=== PATIENT | female | born 2000 | race Caucasian/White ===

== ENCOUNTER 2020-02-16 14:58 | Emergency (ER) | payer OTHER, SELFPAY ==
[2020-02-16 15:06] VITALS: BP 120/74; PULSE 71; RESP 16; TEMP 36.4; O2SAT 100
--- NOTE | 2020-02-16 15:19 | ED.URI ---
HPI - URI/Sore Throat General Stated Complaint: painful breathing and cough Time Seen by Provider: 02/16/20 15:19 Source: patient and RN notes reviewed History of Present Illness HPI Narrative: Patient is a 19-year-old female who presents the urgent care with complaints of persistent productive dark yellow cough with painful deep breathing. Patient states she feels the pain on the left side of her chest and back with deep breathing, coughing fits, and specific movements. Patient states her symptoms started on January 18 and she was at COVID negative and strep negative at that time. Patient states her symptoms just seem to be worsening and she has been using Robitussin, TheraFlu and Mucinex. Patient denies of fever, nausea, vomiting, shortness of breath. Denies of any other acute complaints. No acute distress noted. Patient aware of the plan of care. Some parts of this dictation were generated by voice recognition software and may contain typographical and/or grammatical inaccuracies. Related Data Allergies Allergy/AdvReac Type Severity Reaction Status Date / Time clindamycin Allergy Hives Verified 02/16/20 15:37 Review of Systems Review of Systems: Narrative: CONSTITUTIONAL: Denies fever, chills, or sweats. EYES: Denies visual changes, redness, or discharge. ENT: Reports of sore throat CARDIOVASCULAR: Denies chest pain, palpitations, or edema. RESPIRATORY: Reports a cough and pain with deep breathing GASTROINTESTINAL: Denies abdominal pain, nausea, vomiting, or diarrhea. GENITOURINARY: Denies dysuria or hematuria. SKIN: Denies rash or itching. MUSCULOSKELETAL: Denies back pain, joint pain, or myalgia. NEUROLOGIC: Denies headache, numbness, or weakness. All other systems reviewed are negative, except as documented in HPI. PMFSH Comments At the time of my signature, I reviewed and agree with the nursing past medical, surgical, social, and family history. There is no relevant family history pertinent to the patient complaint. Exam Narrative: Exam Narrative: GENERAL: This is a well-nourished, well-developed patient, in no apparent distress. HEAD: normocephalic, atraumatic. EYES: PERRL. Sclera clear/white. Vision is grossly intact. EARS: External ears normal, auditory canals clear and without drainage, TMs normal without perforation. Hearing grossly intact. NOSE: External nose normal with no obvious nasal discharge, nares without redness, no rhinorrhea. THROAT: Mucous membranes moist, posterior pharynx clear. Mild postnasal drainage NECK: Neck supple, non-tender without lymphadenopathy, masses or thyromegaly. CARDIOVASCULAR: Regular rate and rhythm without murmurs, gallops, or rubs. RESPIRATORY: Clear to auscultation. Breath sounds equal bilaterally. No wheezes, rales, or rhonchi. Nonreproducible left rib pain SKIN: warm, intact with no suspicious lesions or rash, good texture and turgor. NEURO: awake, alert, and oriented to person, place and time. There were no obvious focal neurologic abnormalities. EXTREMITIES: No clubbing, cyanosis, or edema. Course Vital Signs Vital signs: Vital Signs Temperature 97.6 F 02/16/20 15:55 Pulse Rate 71 02/16/20 15:55 Respiratory Rate 16 02/16/20 15:55 Blood Pressure 120/74 02/16/20 15:55 Pulse Oximetry 100 02/16/20 15:55 Temperature 97.6 F 02/16/20 15:55 Pulse Rate 71 02/16/20 15:55 Respiratory Rate 16 02/16/20 15:55 Blood Pressure 120/74 02/16/20 15:55 Pulse Oximetry 100 02/16/20 15:55 reviewed MDM - URI/Sore Throat MDM Narrative Medical decision making narrative: Advised the patient to use steroid regimen as prescribed. Use Tessalon Perles as needed at bedtime for cough. May continue to use Robitussin throughout the day. If cough is productive, try not to suppress the cough throughout the day. Increase water intake and make sure to eat and drink with the medication. Do not bind the chest. Make sure to practice deep breathing. Take Claritin daily
== END 2020-02-16 15:40 | disposition home or self-care (01) ==
PROVIDERS: Emergency Provider Nurse Practitioner Family
DX: J40 Bronchitis, not specified as acute or chronic (principal)
CPT/HCPCS: 99213; G0463

== ENCOUNTER 2020-12-05 16:22 | Emergency (ER) | payer OTHER, SELFPAY ==
[2020-12-05 16:30] VITALS: BP 128/73; PULSE 84; RESP 18; TEMP 36.4; O2SAT 100
--- NOTE | 2020-12-05 16:36 | ED.URI ---
HPI - URI/Sore Throat General Chief Complaint: Upper Respiratory Infection Stated Complaint: sore throat Time Seen by Provider: 12/05/20 16:36 Source: patient and RN notes reviewed Mode of arrival: ambulatory Limitations: no limitations History of Present Illness HPI Narrative: 20-year-old female presents concern for sore throat. Reports intermittent sore throat for many weeks, reports she has been treated for possible strep after a negative strep test. Reports no improvement with the antibiotics. She reports sore throat is worse in the morning than it is in the evening. Reports she has been taking Tylenol. She reports rhinorrhea, postnasal drip. She denies cough, shortness of breath, fever, body aches, chills, sweats. MD elicited complaint: sore throat Related Data Allergies Allergy/AdvReac Type Severity Reaction Status Date / Time clindamycin Allergy Hives Verified 02/16/20 15:37 Review of Systems Review of Systems: Narrative: CONSTITUTIONAL: Denies malaise, chills, sweats, or fever. EYES: Denies visual changes, redness, or discharge. ENT: Reports rhinorrhea, sore throat, postnasal drip. Denies congestion, sinus pain, otalgia CARDIOVASCULAR: Denies chest pain, palpitations, or edema. RESPIRATORY: Denies cough or dyspnea. GASTROINTESTINAL: Denies abdominal pain, nausea, vomiting, diarrhea SKIN: Denies rash or itching. MUSCULOSKELETAL: Denies myalgia. NEUROLOGIC: Denies headache. All systems reviewed & are unremarkable except as noted in HPI and below PMFSH Comments At time of signature, agree with nursing past medical, surgical, social and family history. There is no relevant family history pertinent to the presenting complaint Exam Narrative: Exam Narrative: GENERAL: Well-appearing, well-nourished, and in no acute distress. HEAD: Normocephalic EYES: PERRLA, conjunctivae clear ENT: Nares clear, turbinates edematous and erythematous, clear discharge. Mucous membranes moist. TM pearly mabry with dull light reflex bilaterally; no tragal tenderness. Oropharynx erythematous without lesions. Tonsils not enlarged and without exudate, no drooling, no hoarseness, no trismus, uvula midline. NECK: Supple. No lymphadenopathy CHEST: Clear to auscultation, breath sounds equal. No wheezing, rhonchi, rales, or stridor. No respiratory distress, speaks in full sentences. HEART: Regular rate and rhythm. No murmur heard. SKIN: Warm, dry, no rash. NEURO: Alert and oriented x3. PSYCH: Normal mood and affect Course Course Emergency Course: Patient is aware of diagnosis, understands and agrees to treatment plan. Anticipatory guidance given. Patient agrees to follow-up as directed and is aware of reasons to seek care at the emergency department. Portions of this record may have been created with voice recognition software Vital Signs Vital signs: Vital Signs Temperature 97.6 F 12/05/20 16:30 Pulse Rate 84 12/05/20 16:30 Respiratory Rate 18 12/05/20 16:30 Blood Pressure 128/73 12/05/20 16:30 Pulse Oximetry 100 12/05/20 16:30 Temperature 97.6 F 12/05/20 16:30 Pulse Rate 84 12/05/20 16:30 Respiratory Rate 18 12/05/20 16:30 Blood Pressure 128/73 12/05/20 16:30 Pulse Oximetry 100 12/05/20 16:30 Reviewed. MDM - URI/Sore Throat MDM Narrative Medical decision making narrative: Differential diagnosis considered: Martinez virus, strep pharyngitis, allergic rhinitis, upper respiratory tract infection, sinusitis, rhinosinusitis, nasopharyngitis. viral pharyngitis, otitis media, otitis externa, pneumonia, bronchitis, viral cough syndrome, viral syndrome, and influenza. Exam findings show no acute concerns or changes; patient is non-toxic appearing and is in no distress. Patient is appropriate for outpatient treatment and follow-up. Lab Data Attestation: I reviewed the patient's lab results. Critical Care Time Critical Care Time Critical Care Time: No Discharge Plan Discharge Clinical Impression: Allergic rhi
== END 2020-12-05 16:47 | disposition home or self-care (01) ==
PROVIDERS: Emergency Provider Nurse Practitioner
DX: J30.89 Other allergic rhinitis (principal)
CPT/HCPCS: 87081; 87880; 99213; G0463

== ENCOUNTER 2021-03-22 16:16 | Emergency (ER) | payer OTHER, SELFPAY ==
--- NOTE | 2021-03-22 16:20 | ED.FEMALEGU ---
HPI - Female Genitourinary General Chief complaint: Urogenital-Female Stated complaint: STD check Time Seen by Provider: 03/22/21 16:20 Source: patient and RN notes reviewed History of Present Illness HPI Narrative: Patient is a 21-year-old female who presents the urgent care with complaints of possible STD. Patient states that she has been with 1 partner and he called her approximately 2 hours ago today and told her that he was positive for an STD. Patient states that he did not tell her which STD and immediately blocked her so she was unable to call him back or text him. Patient states that he has a new girlfriend and she is unsure if he had the STD when they were together or not. Patient denies of any vaginal discharge, pain with urination, hematuria, dysuria. Patient is not symptomatic for an STD. No other acute complaints. No acute distress noted. Patient aware of the plan of care. Some parts of this dictation were generated by voice recognition software and may contain typographical and/or grammatical inaccuracies. Related Data Home Medications Medication Instructions Recorded Confirmed desog-e.estradiol/e.estradiol 1 tablet PO DAILY 03/22/21 03/22/21 [Kizzy (28)] sumatriptan succinate 100 mg PO DAILY 03/22/21 03/22/21 Allergies Allergy/AdvReac Type Severity Reaction Status Date / Time clindamycin Allergy Hives Verified 03/22/21 16:54 Review of Systems Review of Systems: CONSTITUTIONAL: Denies fever, chills, or sweats. EYES: Denies visual changes, redness, or discharge. ENT: Denies rhinorrhea, congestion, sore throat, or otalgia. CARDIOVASCULAR: Denies chest pain, palpitations, or edema. RESPIRATORY: Denies cough or dyspnea. GASTROINTESTINAL: Denies abdominal pain, nausea, vomiting, or diarrhea. GENITOURINARY: Denies dysuria or hematuria. Reports a possible STD exposure SKIN: Denies rash or itching. MUSCULOSKELETAL: Denies back pain, joint pain, or myalgia. NEUROLOGIC: Denies headache, numbness, or weakness. All other systems reviewed are negative, except as documented in HPI. PMFSH Comments At the time of my signature, I reviewed and agree with the nursing past medical, surgical, social, and family history. There is no relevant family history pertinent to the patient complaint. Exam Narrative: GENERAL: This is a well-nourished, well-developed patient, in no apparent distress. HEAD: normocephalic, atraumatic. EYES: PERRL. Sclera clear/white. Vision is grossly intact. EARS: External ears normal NOSE: External nose normal with no obvious nasal discharge, nares without redness, no rhinorrhea. THROAT: Mucous membranes moist NECK: Neck supple CARDIOVASCULAR: Regular rate and rhythm without murmurs, gallops, or rubs. RESPIRATORY: Clear to auscultation. Breath sounds equal bilaterally. No wheezes, rales, or rhonchi. SKIN: warm, intact with no suspicious lesions or rash, good texture and turgor. NEURO: awake, alert, and oriented to person, place and time. There were no obvious focal neurologic abnormalities. EXTREMITIES: No clubbing, cyanosis, or edema. Course Vital Signs Vital signs: Vital Signs Temperature 98.3 F 03/22/21 16:27 Pulse Rate 79 03/22/21 16:27 Respiratory Rate 16 03/22/21 16:27 Blood Pressure 128/72 03/22/21 16:27 Pulse Oximetry 100 03/22/21 16:27 Temperature 98.3 F 03/22/21 16:27 Pulse Rate 79 03/22/21 16:27 Respiratory Rate 16 03/22/21 16:27 Blood Pressure 128/72 03/22/21 16:27 Pulse Oximetry 100 03/22/21 16:27 Reviewed MDM - Female Genitourinary MDM Narrative Medical decision making narrative: Reviewed lab results with the patient. She is aware that urine analysis is not indicative of a urinary tract infection. We will send the urine for STD testing and call within 1 week with test results. If you do not hear back from the facility within 1 week, you may call the number at the top of your paperwork to check on test results. Until then, sal
[2021-03-22 16:27] VITALS: BP 128/72; PULSE 79; RESP 16; TEMP 36.8; O2SAT 100
[2021-03-22] MEDS: cefTRIAXone 500 MG VIAL IM (17:16)
[2021-03-22] MEDS: LIDOCAINE HCL 1% LOCAL INJ 20 ML VIAL INFILTRATE (17:16)
--- NOTE | 2021-03-22 18:21 | PC.NURSE ---
1716 lidocaine dose clarified, ceftriaxone 500mg to be mixed with 1 ml lidocaine
== END 2021-03-22 17:35 | disposition home or self-care (01) ==
PROVIDERS: Emergency Provider Nurse Practitioner Family
DX: Z20.2 Contact with and (suspected) exposure to infections with a predominantly sexual mode of transmission (principal)
CPT/HCPCS: 81003; 87491; 87591; 87661; 96372; 99214; G0463; J0696